=== PATIENT | female | born 1935 | race African-American/Black ===

== ENCOUNTER → 2017-07-08 | Outpatient (CLI) | payer OTHER ==
[~2017-07-08] MED LIST: ALDACTONE50 MG PO; ALLEGRA ALLERGY60 MG PO; ASPIRIN EC81 M1 PO; ATORVASTATIN CA40 MG PO; CALCITRIOL0.5 MCG PO; CAPSAICIN HOT1 EACH TP; CARISOPRODOL 3350 MG PO; CENTRUM SILVER1 EAC1 PO; COSOPT EYE DROPS5 ML OP; DARVOCET-N 1001 EACH PO; FISH OIL 1,001000 M2 PO; FLONASE 0.05%50 MCG NASAL; FUROSEMIDE 20 M20 M1 PO; LEVOTHYROXIN0.112 M1 PO; LISINOPRIL5 MG PO; MACROBID 100 M100 M1 PO; MAGOX 400400 MG PO; MECLIZINE HCL12.5 MG PO; NAPROSYN250 MG PO; NORFLEX100 MG PO; OMEPRAZOLE40 MG PO; PREDNISONE 2.52.5 M1 PO; SYNTHROID137 MCG PO; TUMS PO; ULTRAM 50MG TAB50 MG PO; VITAMIN D 5050000 I1 PO; WELCHOL 625 MG625 M1 PO; ZETIA10 MG PO
== END ==
LOC: RAD 01:00
DX: Z12.31 Encounter for screening mammogram for malignant neoplasm of breast (principal)

== ENCOUNTER 2017-10-13 21:48 | Emergency (ER) | payer OTHER ==
[~2017-10-13] VITALS: Ht 160 cm; Wt 74.8 kg
[2017-10-13 23:46] LABS: ABSOLUTE NEUTROPHILS 3.8 thou/uL (1.4-8.2); BASOPHILS 0.7 % (0.0-2.0); EOSINOPHILS 0.7 % (0.0-3.0); HEMATOCRIT 33.1 % (37.0-47.0); HEMOGLOBIN 10.7 gm/dL (12.0-15.0); LYMPHOCYTES 31.3 % (24.0-44.0); MCH 28.9 pg (26.0-34.0); MCHC 32.4 g/dL (28.0-37.0); MCV 89.3 fL (80.0-100.0); PLATELET COUNT 278 thou/uL (150-400); POLYS 59.3 % (36.0-66.0); RDW 13.8 % (10.5-14.5); WBC 6.4 thou/uL (4.0-11.0)
[2017-10-13 23:50] LABS: CALCIUM 7.7 mg/dL (8.5-10.1); CREATININE 1.3 mg/dL (0.6-1.0); POTASSIUM 4.4 mmol/L (3.5-5.1)
[2017-10-13 23:56] LABS: ALBUMIN 3.3 g/dL (3.4-5.0); TOTAL BILIRUBIN 0.4 mg/dL (<0.1-1.0); TOTAL PROTEIN 6.8 g/dL (6.4-8.2)
[2017-10-14 02:13] VITALS: BP 154/55
== END 2017-10-14 02:13 | disposition home or self-care (01) ==
LOC: ER 21:48
PROVIDERS: Emergency Medicine
DX: R51 Headache (principal); R20.0 Anesthesia of skin; I10 Essential (primary) hypertension; E78.00 Pure hypercholesterolemia, unspecified; E89.0 Postprocedural hypothyroidism; Z90.710 Acquired absence of both cervix and uterus; Z88.5 Allergy status to narcotic agent; Z88.1 Allergy status to other antibiotic agents; Z88.6 Allergy status to analgesic agent; Z88.2 Allergy status to sulfonamides

== ENCOUNTER → 2018-08-17 | Outpatient (CLI) | payer OTHER | LOC: RAD 03:27 | DX: Z12.31 Encounter for screening mammogram for malignant neoplasm of breast (principal) ==

== ENCOUNTER → 2019-08-20 | Outpatient (CLI) | payer OTHER | LOC: ULTRA 10:33 | DX: Z12.31 Encounter for screening mammogram for malignant neoplasm of breast (principal) ==

== ENCOUNTER → 2020-08-29 | Outpatient (CLI) | payer OTHER | LOC: RAD 09:52 → BC 11:06 | PROVIDERS: ATTEND Internal Medicine | DX: Z12.31 Encounter for screening mammogram for malignant neoplasm of breast (principal) ==